=== PATIENT | female | born 1985 | race Caucasian/White ===

== ENCOUNTER 2018-07-25 05:26 | Day surgery (SDC) | payer BC, OTHER ==
[2018-07-24 14:17] VITALS: BMI 32.1
[2018-07-25] MEDS ORDERED: ACETAMINOPHEN 325 MG TABLET (FP) PO PRN (13:55)
[2018-07-25] MEDS ORDERED: IBUPROFEN 800 MG/8 ML IJ IVPB PRN (13:55)
--- NOTE | 2018-07-25 13:55 | HP ---
History & Physical Update - History History: No Change - Physical Physical: No Change - Assessment Assessment: No Change - Plan Plan: No Change (cervical dysplasia - for LEEP - agree with H&P from 07/22/18)
[2018-07-25] MEDS ORDERED: LACTATED RINGERS SOLUTION 1,000 ML IV SCH (14:00)
[2018-07-25] MEDS ORDERED: MIDAZOLAM HCL 2 MG/2 ML SINGLE DOSE VIAL ONE ×2 (14:10)
[2018-07-25] MEDS ORDERED: PROPOFOL 20 ML ONE ×2 (14:10)
[2018-07-25] MEDS ORDERED: FERRIC SUBSULFATE 500 ML BOTTLE TP ONE (14:23)
[2018-07-25] MEDS ORDERED: IODINE/POTASSIUM IODIDE 5%/10% 14 ML BOTTLE NR ONE (14:23)
[2018-07-25] MEDS ORDERED: PROMETHAZINE HCL 25 MG/1 ML VIAL IVPUSH PRN (14:41)
[2018-07-25] MEDS ORDERED: oxyCODONE HCL 5 MG TABLET PO PRN (14:41)
[2018-07-25] MEDS ORDERED: ONDANSETRON 4 MG/2 ML VIAL IVPUSH PRN (14:41)
[2018-07-25 16:51] VITALS: BP 108/69; PULSE 76; TEMP 97.6
--- NOTE | 2018-07-29 13:39 | PATH ---
Surgical Pathology Report Patient Name: DOC BEASLEY Med. Rec. #: [id number] /Age/Gender: 1985 (Age: 33) / F Account: [id number] Location: [facility] SUR[facility] Taken: 07/25/2018 Received: 07/26/2018 Reported: 07/29/2018 Physicians: Dianna Esteban M.D. Specimen(s) Received CERVICAL LEEP CONE BIOPSY Clinical History Cervical dysplasia Final Diagnosis CERVICAL, LEEP CONE, BIOPSY: CERVICAL TISSUE WITH ALLISON 1 (CERVICAL INTRAEPITHELIAL NEOPLASIA GRADE 1) AT TRANSFORMATION ZONE, WITH GLANDULAR INVOLVEMENT. CIN1 PRESENT AT SMALL DETACHED SQUAMOUS EPITHELIUM AND CAUTERIZED MARGIN, FOCAL. ACUTE INFLAMMATION AND SQAUMOUS METAPLASIA ALSO IDENTIFIED. Electronically Signed Thao Valerio M.D. Gross Description Received in formalin labeled "cervical biopsy," are 6 deleon, irregular, unoriented portions of soft tissue ranging from 0.4 x 0.4 x 0.2 cm to 1.9 x 0.9 x 0.4 cm. Some of the portions are partially surfaced by mucosa. The specimens are inked blue, serially sectioned and entirely submitted in 4 cassettes. /07/26/2018 saudi07/26/2018
--- NOTE | 2018-08-01 09:53 | OP ---
Operative Note - Note: Operative Date: 07/25/18 Pre-Operative Diagnosis: cervical dysplasia Operation: LEEP Post-Operative Diagnosis: Same as Pre-op Surgeon: Dianna Esteban Anesthesiologist/TAILMAN: Dex Carmona Anesthesia: MAC Specimens Removed: cervical biopsy Estimated Blood Loss (mls): 5 Operative Report Dictated: Yes
--- NOTE | 2018-08-01 11:10 | OP ---
DATE OF OPERATION: 07/25/2018 PREOPERATIVE DIAGNOSIS: Cervical dysplasia. POSTOPERATIVE DIAGNOSIS: Cervical dysplasia. PROCEDURES: Loop electrosurgical excision procedure. SURGEON: Dianna Esteban DO ANESTHESIA: MAC by Dex Carmona MD COMPLICATIONS: None. ESTIMATED BLOOD LOSS: 10 mL SPECIMENS REMOVED: Cervical biopsy. COUNTS: Sponge and instrument count correct. DISPOSITION: Stable, to PACU. BRIEF HISTORY AND PROCEDURE: Patient is a 33-year-old female who had been seen in the office and diagnosed with cervical dysplasia. She was counseled on her options and elected to undergo a LEEP procedure. Consents for the procedure were signed in the office. The patient was admitted to [facility] on July 25, 2018. Consents were reconfirmed. She was then taken back to the operating room, given MAC anesthesia by Dr. Dex Carmona, placed in the dorsal lithotomy position, and a hard timeout was performed. A coated speculum was placed inside the vagina and the cervix was easily visualized. Using a large LEEP loop, a single pass was completed to excise a cervical biopsy which was then sent to Pathology for permanent evaluation. The surgical bed was cauterized with roller ball cautery and Monsel solution was applied. Excellent hemostasis was achieved. All instruments were removed from the vagina. Estimated blood loss 10 mL. Complications none. Sponge and instrument counts were reported to be correct. The patient was recovering in stable condition after waking up from anesthesia in the PACU. DIANNA ESTEBAN DO /[id number] MTDD
== END 2018-07-25 16:55 | disposition home or self-care (01) ==
LOC: JASU-SURG 05:26
PROVIDERS: ATTEND Obstetrics & Gynecology
PROC: 0UBC7ZX Excision of Cervix, Via Natural or Artificial Opening, Diagnostic (ICD-10-PCS; principal; 2018-07-25 14:00)
DX: N87.0 Mild cervical dysplasia (principal)
CPT/HCPCS: 36415; 84703; 86850; 86900; 86901; 88307-TC; 94760